=== PATIENT | female | born 1955 | race Caucasian/White ===

== ENCOUNTER 2016-09-05 20:46 | Emergency (ER) | payer OTHER | END 2016-09-05 21:21 | disposition home or self-care (01) | LOC: ER 20:46 | DX: S50.02XA Contusion of left elbow, initial encounter (principal); X50.0XXA Overexertion from strenuous movement or load, initial encounter; I10 Essential (primary) hypertension; J44.9 Chronic obstructive pulmonary disease, unspecified; Z85.3 Personal history of malignant neoplasm of breast; F32.9 Major depressive disorder, single episode, unspecified; Z88.8 Allergy status to other drugs, medicaments and biological substances | CPT/HCPCS: 73080; 99070; 99283 ==

== ENCOUNTER 2016-11-02 13:28 | Emergency (ER) | payer OTHER | END 2016-11-02 14:06 | disposition home or self-care (01) | LOC: ER 13:28 | DX: L03.313 Cellulitis of chest wall (principal); Z92.21 Personal history of antineoplastic chemotherapy; Z79.891 Long term (current) use of opiate analgesic; Z88.8 Allergy status to other drugs, medicaments and biological substances | CPT/HCPCS: 99282 ==